=== PATIENT | male | born 2000 | race Caucasian/White ===

== ENCOUNTER 2019-03-12 12:25 | Emergency (ER) | payer BC ==
[2019-03-12 13:01] VITALS: BP 155/98; PULSE 104
[2019-03-12] MEDS ORDERED: Ondansetron 4 MG Tab.DIS PO ONE (13:23)
[2019-03-12] MEDS ORDERED: Famotidine 20 MG Tab PO ONE (13:24)
--- NOTE | 2019-03-12 13:43 | EDM.PDOC ---
ED HPI GENERAL MEDICAL PROBLEM - General Chief Complaint: Abdominal Pain Stated Complaint: THROWING UP BLOOD UNABLE TO EAT ABD PAIN Time Seen by Provider: 03/12/19 12:53 Source of Information: Reports: Patient History Limitations: Reports: No Limitations - History of Present Illness INITIAL COMMENTS - FREE TEXT/NARRATIVE: The patient presents with abdominal pain, nausea and vomiting. He also has been vomiting some blood. He said this all started on Wednesday. He did not drink alcohol before this started but a couple days later. He has some diarrhea with it. He has no fever, chills, cough, congestion, runny nose, chest pain or shortness of breath. The pain is to his right lateral abdomen. He has some mild epigastric pain. He still has his gallbladder and appendix. He has no dysuria. He did not eat anything bad and he has not been around anyone who is sick. Onset: Gradual Duration: Day(s): (6) Location: Reports: Abdomen Quality: Reports: Sharp Severity: Moderate Improves with: Reports: None Worsens with: Reports: None Associated Symptoms: Reports: Nausea/Vomiting. Denies: Chest Pain, Cough, Fever /Chills, Headaches, Shortness of Breath Right Abdomen Pain Score (Numeric/FACES): 6 - Related Data Allergies Allergy/AdvReac Type Severity Reaction Status Date / Time No Known Allergies Allergy Verified 08/23/15 12:47 Home Meds: Home Meds Ondansetron [Zofran ODT] 4 mg PO Q6H PRN #20 tab.dis 03/12/19 [Rx] Past Medical History - Past Health History Medical/Surgical History: Denies Medical/Surgical History Gastrointestinal History: Reports: GERD Musculoskeletal History: Reports: Back Pain, Chronic Social & Family History - Tobacco Use Smoking Status *Q: Current Every Day Smoker Years of Tobacco use: 9 Packs/Tins Daily: 1 - Caffeine Use Caffeine Use: Reports: Coffee, Energy Drinks, Soda, Tea - Recreational Drug Use Recreational Drug Use: No - Living Situation & Occupation Living situation: Reports: Other Occupation: Student ED ROS GENERAL - Review of Systems Review Of Systems: See Below Constitutional: Reports: No Symptoms HEENT: Reports: No Symptoms Respiratory: Reports: No Symptoms Cardiovascular: Reports: No Symptoms Endocrine: Reports: No Symptoms GI/Abdominal: Reports: Abdominal Pain, Hematemesis, Nausea, Vomiting : Reports: No Symptoms Musculoskeletal: Reports: No Symptoms ED EXAM, GI/ABD - Physical Exam Exam: See Below Exam Limited By: No Limitations General Appearance: Alert, No Apparent Distress Ears: Normal External Exam Nose: Normal Inspection Head: Atraumatic, Normocephalic Neck: Normal Inspection Respiratory/Chest: No Respiratory Distress, Lungs Clear, Normal Breath Sounds Cardiovascular: Regular Rate, Rhythm, No Edema, No Murmur GI/Abdominal Exam: Soft, No Organomegaly, No Mass, Tender (Mild tenderness to the right lateral abdomen) Course - Vital Signs Last Recorded V/S: Last Vital Signs Temp 98.5 F 03/12/19 12:59 Pulse 104 H 03/12/19 12:59 Resp 20 03/12/19 12:59 BP 155/98 H 03/12/19 12:59 Pulse Ox 96 03/12/19 12:59 - Orders/Labs/Meds Orders: Active Orders 24 hr Category Date Time Status UA W/MICROSCOPIC [URIN] Stat Lab 03/12/19 13:23 Stop Req Labs: Laboratory Tests 03/12/19 03/12/19 Range/Units 13:31 13:31 WBC 5.46 (4.23-9.07) K/mm3 RBC 5.06 (4.63-6.08) M/mm3 Hgb 15.7 (13.7-17.5) gm/L Hct 44.1 (40.1-51.0) % MCV 87.2 (79.0-92.2) fl MCH 31.0 (25.7-32.2) pg MCHC 35.6 H (32.2-35.5) g/dl RDW Std Deviation 42.1 (35.1-43.9) fL Plt Count 268 (163-337) K/mm3 MPV 9.2 L (9.4-12.3) fl Neut % (Auto) 61.8 (34.0-67.9) % Lymph % (Auto) 28.8 (21.8-53.1) % [place] % (Auto) 9.0 (5.3-12.2) % Eos % (Auto) 0 L (0.8-7.0) Baso % (Auto) 0.2 (0.1-1.2) % Neut # (Auto) 3.38 (1.78-5.38) K/mm3 Lymph # (Auto) 1.57 (1.32-3.57) K/mm3 [place] # (Auto) 0.49 (0.30-0.82) K/mm3 Eos # (Auto) 0.00 L (0.04-0.54) K/mm3 Baso # (Auto) 0.01 (0.01-0.08) K/mm3 Sodium 141 (136-145) mEq/L Potassium 3.7 (3.5-5.1) mEq/L Chloride 103 (98-107) mEq/L Carbon Dioxide 28 (21-32) mEq/L Anion Gap 13.7 (5-15) BUN 8 (7-18) mg/dL Creatinine 1.0 (0.7-1.3) mg/dL Est Cr Clr Drug Dosing 132.06 mL/min Estimated GFR (MDRD) > 60 (>60) mL/min BUN/Creatinine Ratio 8.0 L (14-18) Glucose 99 (74-106) mg/dL Calcium 8.9 (8.5-10.1) mg/dL Total Bilirubin 0.6 (0.2-1.0) mg/dL AST 36 (15-37) U/L ALT 38 (16-63) U/L Alkaline Phosphatase 100 (46-116) U/L Total Protein 7.6 (6.4-8.2) g/dl Albumin 4.4 (3.4-5.0) g/dl Globulin 3.2 gm/dL Albumin/Globulin Ratio 1.4 (1-2) Lipase 95 (73-393) U/L Meds: Medications Discontinued Medications Generic Name Dose Route Start Last Admin Trade Name Freq PRN Reason Stop Dose Admin Famotidine 20 mg 03/12/19 13:24 03/12/19 13:32 Pepcid PO 03/12/19 13:25 20 mg ONETIME ONE Administration Ondansetron HCl 4 mg 03/12/19 13:23 03/12/19 13:31 Zofran Odt PO 03/12/19 13:24 4 mg ONETIME ONE Administration - Re-Assessments/Exams Free Text/Narrative Re-Assessment/Exam: 03/12/19 13:45 The patient did not want an IV so I ordered labs, UA, zofran 4mg ODT PO and pepcid 20mg PO. 03/12/19 14:10 His CBC and CMP look better. I will discharge him home with some zofran. Departure - Departure Time of Disposition: 14:15 Disposition: Home, Self-Care 01 Condition: Good Clinical Impression: Gastroenteritis - Discharge Information *PRESCRIPTION DRUG MONITORING PROGRAM REVIEWED*: No *COPY OF PRESCRIPTION DRUG MONITORING REPORT IN PATIENT FLAVIO: No Prescriptions: Ondansetron [Zofran ODT] 4 mg PO Q6H PRN #20 tab.dis PRN Reason: Nausea\vomiting Referrals: PCP,None [Primary Care Provider] - Forms: ED Department Discharge Additional Instructions: Drink plenty of fluids. Take zofran every 6 hours as needed for nausea and vomiting. Take pepcid daily. Please return if you are worse. - My Orders Last 24 Hours: My Active Orders 03/12/19 13:23 UA W/MICROSCOPIC [URIN] Stat - Assessment/Plan Last 24 Hours: My Active Orders 03/12/19 13:23 UA W/MICROSCOPIC [URIN] Stat
== END 2019-03-12 14:35 | disposition home or self-care (01) ==
LOC: JD.ED 12:25
DX: K52.9 Noninfective gastroenteritis and colitis, unspecified (principal); F17.210 Nicotine dependence, cigarettes, uncomplicated
CPT/HCPCS: 36415; 80053; 83690; 85025; 99283; A9270